=== PATIENT | male | born 1960 | race Caucasian/White ===

== ENCOUNTER → 2017-07-18 | Day surgery (SDC) | payer MEDICARE ==
[~2017-07-18] VITALS: Ht 188 cm; Wt 99.2 kg
[~2017-07-18] MED LIST: Bupivacaine-MPF 0.5% 30 mL Inj INFILTRATE ONE; CEPH-512 PO; CeFAZolin 2 Gm/50 mL D5W Duplex Bag IV ONE; CeFAZolin Inj 2 GM in IV Premix 1 EACH IV ONE; Dexamethasone 4 mg/mL Inj IVPUSH PRN; EPHEDrine Sulfate 50 mg/mL Inj IVPUSH PRN; Gentamicin 40 mg/mL 2 mL Inj IRRIGATION ONE; HYDR-3825 PO; INSLIS SUBQ; INSU100I28 SQ; LOSA25TA21 PO; Lactated Ringer's 1,000 ML IV SCH; Lactated Ringer's 500 ML IV PRN; MetoCLOpramide 5 mg/mL 2 mL Inj IVPUSH PRN; PRAV40TA PO; Phenylephrine 10,000 mCg/mL Inj IVPUSH PRN; Propofol 10,000 mCg/mL 20 mL Inj ONE; SITA1TAB6 PO; VITA150T PO; fentaNYL-PF 50 mCg/mL 2 mL Inj IVPUSH PRN
[2017-07-18] MEDS: Lactated Ringer's 1,000 ML IV SCH ×2 (05:49→07:27)
[2017-07-18 06:15] VITALS: BP 165/84; PULSE 84; RESP 18; O2SAT 97
--- NOTE | 2017-07-18 07:13 | PCM.HPANE ---
Patient Data Surgeon Admitting Provider: Attending Provider:Kota Guardado DPM Primary Care Physician:Carmel Other Provider:Armani Freeman Anesthesia Reason for Visit Charcot Foot With External Fixation,Right Foot/Leg Ht/WT & BMI Height (Feet): 6 Height (Inches): 2.00 Weight (Kilograms): 99.2 Body Mass Index 28.00 Allergies Coded Allergies: No Known Allergies (Unverified , 07/11/17) Past Anesthesia History Anesthesia History: Denies:: Abnormal Airway, Anesthesia Reactions, Difficult Intubation, Fam Anesthesia Reaction Diabetes History Hx Diabetes?: Yes Type of Diabetes: Type II Glycemic Control: Insulin & Oral Medication Current Bedside Blood Glucose: 155 MRSA MRSA: No Medications Hypertension Medication: Yes Home Meds Incl Beta Erlinda: No Reported Medications Insulin Degludec (Tresiba Flextouch U-100)100 Unit/Ml (3 Ml) Insuln.pen42 Unit SQ DAILY 07/11/17 Vitamin B Complex & Vit C No.4 (Super B Complex)150 Mg [id number] Mg PO DAILY 07/11/17 Pravastatin 40 Mg [id number] Mg PO DAILY Ref 0 07/11/17 Losartan Potassium 25 Mg [id number] Mg PO DAILY 07/11/17 Sitagliptin/Metformin 50-1000 mg (Janumet 50-1000 mg)1 Each Tablet1 Tablet PO BID 07/11/17 Hydrocodone-Acetaminophen 7.5-325 mg 1 Each Tablet1 Tablet PO Q6H PRN For Pain Ref 0 07/11/17 Insulin Human Lispro (HumaLOG U100 Insulin Vial)100 Unit/Ml Unit15 Unit SUBQ TIDAC #1 VIAL Ref 0 Check blood sugars before meals and at bedtime. Use correction factor only before meals. Blood Sugar Lispro Correction: <151, 0 units; 151-175, 1 unit; 176-200, 2 units; 201-225, 3 units; 226-250, 4 units; 251-275, 5 units; 276-300, 6 units; 301-325, 7 units; 326-350, 8 units; 351-375, 9 units; 376-400, 10 units; >400, 12 units. 07/11/17 Cephalexin (Keflex)500 Mg [id number] Mg PO TID #40 CAPSULE Ref 0 07/11/17 History History of ENT Problems?: No HEENT History: Denies:: Abnormal Airway Cataracts Difficult Intubation Dysphagia Glaucoma Hearing Problem Sinus Problem TMJ Denture Type: None Teeth Condition: Within Normal Limits Hx of Heart Problems?: Yes Cardiovascular History: Positive for:: Hypertension Denies:: AICD Abdominal Aortic Aneurism Atrial Fibrillation Cardiac Surgery Chest Pain Congestive Heart Failure Coronary Artery Disease Edema Heart Murmur Irregular Heartbeat Pacemaker Peripheral Vascular Hx of Respiratory Problem?: Yes Respiratory History: Denies:: Asthma COPD Emphysema Pneumonia Tuberculosis Use of C-PAP Machine (LOCO+- does not tolerate CPAP, working on alternatives) Other History/Comment LOCO intolerant of CPAP Hx Neurologic Problems?: Yes Neurological History: Denies:: CVA Dizziness Headaches Multiple Sclerosis Parkinson's Disease Seizures TIA Other History/Comments Peripheral neuropathy to [place] Hx of GI Problems?: No Hx of Problems?: No Genitourinary History: Denies:: Kidney Stones Urinary Tract Infection Male Hx: Denies:: Prostate Problems Scrotal Mass Testicular Surgery Skin History: Positive for:: History Skin Disorders? (hx of ulcerations right foot- related to DM) Denies:: Pressure Ulcers Hx Musculoskeletal Problems?: Yes Musculoskeletal History: Positive for:: Musculoskeletal Trauma (right foot current admission problem, post Charcot fixation-broken hardware) Denies:: Back Injury Degenerative Joint Fibromyalgia Osteoarthritis Systemic Lupus Other History/Comment charcot foot R Hx of Psycho/Social Problems?: No Psycho Social History: Denies:: Anxiety Hx Depression Hx Surgeries?: Yes (charcot ORIF right foot) Hx Any Other Health Problems?: Yes Other History: Denies:: Cancer Thyroid Disease History Blood Transfusions: Positive for:: Accept Blood Products? Denies:: Blood Transfusions Hx Diabetes: YesBedside Blood Glucose: 155 Hx Alcohol Use: NoHx Substance Use: No Stop/Bang S-Snoring: Do You Snore Loudly: Yes T-Tired: feel tired, fatigued: No O-Obsered: Observed not breath: No P-Blood Pressure: treated: Yes B- Body Mass Index > 35 kg/m2: No A- Age over 50: Yes N- Neck Large Circumference: No G- Gender Male: Yes LOCO Total Score: 4 LOCO Risk Assessment: High Risk, =/>3 Yes Risk Assessment Category Category 1A: Patient has history of documented sleep apnea, and HAS NOT received any narcotic, sedative or anesthesia administration during this stay. Category 1B: Patient has history of documented sleep apnea, and HAS received any narcotic , sedative or anesthesia administration during this stay Category 2: Patient has SUSPECTED Obstructive Sleep Apnea, and HAS received any narcotic , sedative or anesthesia administration during this stay. Category 3: Patient has SUSPECTED Obstructive Sleep Apnea and HAS NOT received narcotic, sedative or anesthesia administration during this stay. Category 4: Outpatient in Procedural Areas with known sleep apnea or who screen positive for High Risk via the STOP/BANG questionnaire. Exam Exam Vital Signs Vital Signs Date Time Temp Pulse Resp B/P Pulse Ox O2 Delivery O2 Flow Rate FiO2 07/18/17 06:15 36.4 84 18 165/84 97 Room Air General Appearance: Alert, Oriented X3, Cooperative, No Acute Distress HEENT/AIRWAY: MP 2, Neck Movement (ok), Mouth Opening (ok) Lungs: Clear to Auscultation, Normal Air Movement Heart: Exam Unremarkable, Regular Rate/Rhythm, No Murmurs/Rubs/Gallops Meds/Labs/Diagnostics Admission Meds Current Medications Lactated Ringer's (Lr) 1,000 ml @ 120 mls/hr Q8H20M IV Last administered on t 05:49; Start 07/18/17 at 05:00; Stop 07/18/17 at 13:19 Bedside Blood Glucose: 155 Plan Impression Patient chart reviewed, patient interviewed and anesthestic plan with risks, benefits, and alternatives discussed, and informed consent obtained. NPO per Anesth. Guidelines: Yes ASA Physical Status: ASA3 Severe Disease Anesthetic Plan: MAC Bene/Risks/Altern/Consents: Yes HP Complete Prior to Induction: Yes Johnson Dumont MD Jul 18, 2017 07:13
[2017-07-18 08:20] VITALS: BP 125/82; RESP 18; O2SAT 98
--- NOTE | 2017-07-18 08:24 | PCM.PODPO ---
Podiatry Operative Report Date of Service: Jul 18, 2017 Date of Service Jul 18, 2017 Pre Operative Diagnosis Charcot foot right lower extremity Retained external fixator right lower extremity Post Operative Diagnosis Same as preoperative diagnoses Procedure Removal of external fixator with washout and debridement of pin sites right lower extremity Surgeon Surgeon: Kota Guardado DPM Assistants: None Indication for Procedure Loosened external fixator right lower extremity Findings Multiple Carol Ann external fixator all of wires without purchase through bone Details of Procedure Patient was identified in the preoperative holding area. All preoperative comorbidities and allergies were identified and thoroughly discussed. The patient was then transferred into the operating room and placed on the operating room table in the normal supine position. The external ring fixator wires were then prepped with Betadine and pin sites were prepped with Betadine carefully. All wires were cut with a wirer the external fixator frame was then carefully removed. All K wires were then removed atraumatically most without the need for a wire pizza driver as they were placed only through soft tissue. All sharps were then cleared from the table. The leg was then prepped and draped with Betadine. A large curette was then utilized to carefully debride all pin sites which included approximately 8 in the foot and 8 in the leg healthy bleeding tissue was exposed to all pin sites no purulent discharge was noted these wounds were then closely flushed with large amounts of normal saline. A dressing was then applied consisting of Xeroform to all pin sites multiple layers of Kerlix and a mildly compressive Dalton compression dressing with a posterior splint. No complications occurred during this procedure the patient was awoken by anesthesia and transported out of the operating room. Grafts, Implants: None Complications There were no periprocedural complications identified. Condition Stable Anesthetic Administered: GA Catheters: None Output, Estimated Blood Loss: 10 Blood Admin during surgery: No Surgical Cast or Splint: Well-padded Short Leg Splint Surgical Specimen Removed: No Specimen sent to Pathology: No Post Operative Plan Elevate right lower extremity Nonweightbearing right lower extremity Keep dressing clean dry and intact Discharged to home when stable Advance diet as tolerated Follow-up in 1 week Kota Guardado DPM Jul 18, 2017 08:24
[2017-07-18 08:53] VITALS: BP 161/73; PULSE 79; RESP 18; O2SAT 97
--- NOTE | 2017-07-18 14:03 | PCM.ANEP1 ---
Post Anesthesia PACU Phase 1 Assessment Date of Service: Jul 18, 2017 Vital Signs Vital Signs Date Time Temp Pulse Resp B/P Pulse Ox O2 Delivery O2 Flow Rate FiO2 07/18/17 08:53 36.5 79 18 161/73 97 Room Air 07/18/17 08:20 36.1 18 125/82 98 Room Air 07/18/17 06:15 36.4 84 18 165/84 97 Room Air Anesthetic Administered: MAC Level of Alertness: Awake, talking Pain: No Nausea or Vomiting: No CV Function & Hydration Stable: Yes Airway Device: Oxygen Delivery: Room Air Lungs: Clear to Auscultation, Normal Air Movement PACU Phase 2 Assessment Complications: No Follow up Care: No Patient Instructions Provided: N/A Johnson Dumont MD Jul 18, 2017 14:03
== END | disposition home or self-care (01) ==
LOC: SAS 05:44
PROVIDERS: ATTEND Podiatrist Foot & Ankle Surgery
DX: M21.271 Flexion deformity, right ankle and toes (principal); M14.671 Charcot's joint, right ankle and foot; E11.22 Type 2 diabetes mellitus with diabetic chronic kidney disease; E11.49 Type 2 diabetes mellitus with other diabetic neurological complication; I12.9 Hypertensive chronic kidney disease with stage 1 through stage 4 chronic kidney disease, or unspecified chronic kidney disease; N40.1 Benign prostatic hyperplasia with lower urinary tract symptoms; R35.0 Frequency of micturition; G47.33 Obstructive sleep apnea (adult) (pediatric); N18.9 Chronic kidney disease, unspecified; Z96.9 Presence of functional implant, unspecified; Z79.4 Long term (current) use of insulin; Z79.84 Long term (current) use of oral hypoglycemic drugs
CPT/HCPCS: 20694; J0690; J1580; J2704; J7120